=== PATIENT | female | born 1950 | race American Indian/Alaskan Native ===

== ENCOUNTER 2018-05-04 16:01 | Outpatient (CLI) | payer MEDICARE, OTHER | END 2018-05-04 16:02 | disposition home or self-care (01) | LOC: LABHHL 16:01 | PROVIDERS: ATTEND Surgery | DX: L72.3 Sebaceous cyst (principal) | CPT/HCPCS: 87075; 87116 ==

== ENCOUNTER 2018-07-16 07:10 | Day surgery (SDC) | payer MEDICARE, OTHER ==
[~2018-07-16 07:10] MED LIST: ANCEF/STERILE WATER 2 GM/20 ML 2 GM/20 ML SYRINGE IV NR; VANCOMYCIN 1,250 MG in NACL 0.9% 250ML 250 ML IV SCH; VANCOMYCIN/NS 1 GM/250 ML 1 GM/250 ML BAG IV NR
[2018-07-16] MEDS ORDERED: DILAUDID IV PRN (08:04)
[2018-07-16] MEDS ORDERED: SUBLIMAZE IV NR (08:04)
--- NOTE | 2018-07-16 08:07 | Anesthesia Day of Surgery ---
Anesthesia Day of Surgery - Day of Surgery Patient Examined: Yes Patient H&P Reviewed: Yes Patient is NPO: Yes Beta Blockers: Yes
--- NOTE | 2018-07-16 08:07 | Anesthesia Consultation ---
Anesthesia Consult and Med Hx Date of service: 07/16/18 - Airway Anesthetic Teeth Evaluation: Good ROM Head & Neck: Adequate Mental/Hyoid Distance: Adequate Mallampati Class: Class II Intubation Access Assessment: Probably Good - Pulmonary Exam CTA: Yes - Cardiac Exam Cardiac Exam: RRR - Pre-Operative Health Status ASA Pre-Surgery Classification: ASA3 Proposed Anesthetic Plan: General Nerve Block: PEC - Pulmonary Hx Smoking: No Hx Asthma: No Hx Respiratory Symptoms: No Hx Sleep Apnea: Yes (noncompliant with CPAP) - Cardiovascular System Hx Hypertension: Yes (took metoprolol, losartan, amlodipine last night) Hx Heart Attack/AMI: No Hx Percutaneous Transluminal Coronary Angioplasty (PTCA): No - Central Nervous System Hx Seizures: No CVA: No Hx Psychiatric Problems: Yes - Gastrointestinal Hx Gastroesophageal Reflux Disease: Yes (took protonix this morning; well controlled) - Endocrine Hx Renal Disease: No Hx Liver Disease: No Hx Non-Insulin Dependent Diabetes: Yes (took metoprolol last night) Hx Thyroid Disease: No - Other Systems Hx Obesity: Yes - Additional Comments Anesthesia Medical History Comments: No hx anesthetic complications. Consented for preop PEC block per surgeon request for post op analgesia.
[2018-07-16] MEDS ORDERED: MARCAINE 0.25% INFILTRATI ONE (08:17)
[2018-07-16] MEDS ORDERED: VERSED IV NR (09:00)
[2018-07-16] MEDS ORDERED: LACTATED RINGERS 1,000 ML IV SCH (09:00)
[2018-07-16] MEDS ORDERED: DIPRIVAN 10 MG/ML IV ONE (09:17)
[2018-07-16] MEDS ORDERED: SUBLIMAZE ONE (09:18)
[2018-07-16] MEDS ORDERED: NACL 0.9% IR ONE (10:03)
[2018-07-16] MEDS ORDERED: XYLOCAINE CARDIAC IV ONE (11:13)
[2018-07-16] MEDS ORDERED: ZOFRAN ONE (11:16)
--- NOTE | 2018-07-16 11:23 | Short Stay Summary ---
Short Stay Documentation Date of service: 07/16/18 - History H&P: obtained from office - Allergies and Medications Current Medications: Allergies ampicillin Allergy (Verified 07/13/18 09:48) Gums swell, Mouth sores ibuprofen Allergy (Verified 07/13/18 09:48) Lips and Eyes Swell Penicillins Allergy (Verified 07/13/18 09:48) Gums swell, Mouth sores shellfish derived Allergy (Verified 07/13/18 09:48) Welps Sulfa (Sulfonamide Antibiotics) Allergy (Verified 07/13/18 09:48) Itching codeine Adverse Reaction (Verified 07/13/18 09:48) Headache Home Medications Medication Instructions Recorded Confirmed Last Taken Type Acetaminophen [Tylenol Extra 500 mg PO Q4H PRN 07/13/18 07/16/18 07/15/18 09:00 History Strength] Cetirizine HCl [Allergy Relief] 10 mg PO DAILY 07/13/18 07/16/18 07/15/18 18:00 History Chlorthalidone 25 mg PO DAILY 07/13/18 07/16/18 07/16/18 04:00 History Losartan Potassium 100 mg PO QHS 07/13/18 07/16/18 07/15/18 21:00 History Metformin HCl 500 mg PO BID 07/13/18 07/16/18 07/15/18 21:00 History Metoprolol Xl [Metoprolol 50 mg PO QDAY 07/13/18 07/16/18 07/15/18 21:00 History SUCCINATE ER TAB] Pantoprazole [Protonix] 40 mg PO QDAY 07/13/18 07/16/18 07/16/18 04:00 History Potassium Chloride [Klor-Con 10] 10 meq PO DAILY 07/13/18 07/16/18 07/15/18 20:00 History Pravastatin [Pravachol] 20 mg PO DAILY 07/13/18 07/16/18 07/15/18 21:00 History amLODIPine [Norvasc] 5 mg PO DAILY 07/13/18 07/16/18 07/15/18 21:00 History traMADol [Ultram] 50 mg PO Q8HR PRN 07/13/18 07/16/18 07/15/18 09:00 History traZODone [Desyrel] 50 mg PO QHS 07/13/18 07/16/18 07/15/18 21:00 History Clindamycin [Clindamycin CAP] 300 mg PO Q8H 5 Days #15 cap 07/16/18 Unknown Rx traMADol [Ultram 50 MG tab] 50 mg PO Q6HR PRN #30 tablet 07/16/18 Unknown Rx Active Medications Fentanyl (Sublimaze) 100 mcg IV ONCE NR Stop: 07/16/18 16:00 Last Admin: 07/16/18 08:36 Dose: 100 mcg Documented by: Hydromorphone HCl (Dilaudid) 0.5 mg IV Q10MIN PRN PRN Reason: Pain , Severe (7-10) Stop: 07/16/18 20:00 Vancomycin HCl 1,250 mg/ (Sodium Chloride) 275 mls @ 166.667 mls/hr IV PREOP TERRI Last Admin: 07/16/18 08:41 Dose: 166.667 mls/hr Documented by: Lactated Ringer's (Lactated Ringers) 1,000 mls @ 100 mls/hr IV DIRECT TERRI Last Admin: 07/16/18 08:10 Dose: 100 mls/hr Documented by: Midazolam HCl (Versed) 2 mg IV PREOP NR Stop: 07/16/18 23:59 Last Admin: 07/16/18 08:36 Dose: 2 mg Documented by: - Brief post op/procedure progress note Date of procedure: 07/16/18 Pre-op diagnosis: Right axillary accessory breast tissue and right breast sebaceous cyst Post-op diagnosis: same Procedure: Right axillary accessory breast tissue partial mastectomy and right breast sebaceous cyst excisional biopsy Anesthesia: GETA Findings: Right axillary accessory breast tissue excision and right breast sebaceous cyst excisional biopsy at 2:00 position 12-14 cm from the nipple Surgeon: KITTY MORRIS Estimated blood loss: minimal Pathology: list (right breast sebaceous cyst and right axillary accessory breast tissue) Specimen disposition: to lab Condition: stable - Disposition Condition at discharge: Good Disposition: DC-01 TO HOME OR SELFCARE Short Stay Discharge Plan Activity: other (no heavy lifting) Diet: regular Wound: keep clean and dry (remove axillary dressing on monday; may shower in 48 hours; no baths, pools or lakes) Follow up with: ARPITA CHAND MD [Primary Care Provider] - 7 Days KITTY MORRIS MD [Staff Physician] - 7 Days Prescriptions: Clindamycin [Clindamycin CAP] 300 mg PO Q8H 5 Days #15 cap traMADol [Ultram 50 MG tab] 50 mg PO Q6HR PRN #30 tablet PRN Reason: Pain
--- NOTE | 2018-07-16 11:30 | Operative Report ---
Operative Report Operative Report: Date of Service: July 16, 2018 Preoperative diagnosis: Right breast upper inner quadrant sebaceous cyst and right axillary accessory breast tissue Postoperative diagnosis: Same Procedure:Right breast sebaceous cyst excisional biopsy and right axillary accessory breast tissue partial mastectomy Surgeon: Lala Burk M.D. Findings: Known right breast sebaceous cyst at 2:00 position 12-14 cm from the nipple and right axillary accessory breast tissue Complications: None Drains: None Estimated blood loss: Minimal Disposition: PACU in good condition Indication for operative procedure: This is a 67-year-old lady with known right breast sebaceous cyst at the 2:00 position with prior infection and right axillary accessory breast tissue. Recommendation was to proceed with excisional biopsy given significant history of infection of right breast sebaceous cyst and patient wanted excision of accessory breast tissue given symptomatic pain. Patient wished to proceed with the above procedure. The patient was procedure in detail: The patient was taken to the operating room and was laid supine. General anesthesia was administered. Right pectoral block placed in preoperative holding. The right breast sebaceous cyst location was noted as well as the accessory breast tissue. The right breast and axilla was prepped and draped in the normal sterile operative fashion. Timeout was performed. Attention was taken towards the axillary accessorty breast tissue. A typical mastecomy marking was made. A breast incision was made with a 15 blade knife encompassing the axillary accessory breast tissue with dissection taken down to the subcutaneous tissues. The accessory breast was excised. The breast cavity was irrigated and suctioned. Hemostasis was obtained. The deep tissues were approximated and closed using interrupted 3-0 Vicryl and skin brought together and closed using a running 4-0 Monocryl followed by dermabond. Attention was then taken towards the right breast sebaceous cyst at the 2:00 position 12-14 cm from the nipple. A breast incision was made with a 15 blade knife encompassing the sebaceous cyst with dissection taken down to the subcutaneous tissues. The cyst was not encountered and was excised. The breast cavity was irrigated and suctioned. Hemostasis was obtained. The deep tissues were approximated and closed using interrupted 3-0 Vicryl and skin brought together and closed using a running 4-0 Monocryl followed by dermabond. She tolerated surgery very well, was awaken from anesthesia and was transported to PACU in good condition.
[2018-07-16] MEDS ORDERED: PERCOCET 5/325 PO ONE (11:39)
[2018-07-16 12:31] VITALS: BP 154/72
--- NOTE | 2018-07-16 13:48 | Post Anesthesia Evaluation ---
- Post Anesthesia Evaluation Patient Participated: Yes Airway Patent: Yes Stable Respiratory Function: Yes Nausea/Vomiting: No Temp > 96.8F: Yes Pain Manageable: Yes Adequeate Hydration: Yes Anesthesia Complications: No Block Receding Appropriately: No (block for postop analgesia)
== END 2018-07-16 07:11 | disposition home or self-care (01) ==
LOC: OR 07:10
PROVIDERS: ATTEND Surgery
DX: N60.11 Diffuse cystic mastopathy of right breast (principal); L72.3 Sebaceous cyst; E78.00 Pure hypercholesterolemia, unspecified; E11.40 Type 2 diabetes mellitus with diabetic neuropathy, unspecified; I10 Essential (primary) hypertension; G47.30 Sleep apnea, unspecified; K21.9 Gastro-esophageal reflux disease without esophagitis; F32.9 Major depressive disorder, single episode, unspecified; M19.90 Unspecified osteoarthritis, unspecified site; E66.9 Obesity, unspecified; Z68.32 Body mass index [BMI] 32.0-32.9, adult; Z88.6 Allergy status to analgesic agent; Z88.5 Allergy status to narcotic agent; Z88.2 Allergy status to sulfonamides; Z98.51 Tubal ligation status; Z87.442 Personal history of urinary calculi; Z98.890 Other specified postprocedural states; Z88.0 Allergy status to penicillin; Z91.013 Allergy to seafood; Z79.899 Other long term (current) drug therapy; Z79.01 Long term (current) use of anticoagulants; Z79.84 Long term (current) use of oral hypoglycemic drugs; Z88.8 Allergy status to other drugs, medicaments and biological substances
CPT/HCPCS: 11406; 19120; 82962; 88305; 88307; J1170; J2001; J2250; J2405; J2704; J3010; J3370; J7050; J7120

== ENCOUNTER 2020-03-31 13:08 | Outpatient (CLI) | payer MEDICARE, OTHER ==
--- NOTE | 2020-03-31 16:48 | Mammography Report ---
DIGITAL SCREENING MAMMOGRAM WITH CAD, 03/31/2020 CLINICAL INFORMATION / INDICATION: Routine screening mammography. SCREENING MAMMO TECHNIQUE: Digital bilateral 2D mammography was obtained in the craniocaudal and mediolateral obliqu e projections. This examination was interpreted with the benefit of Computer-Aided Detection analysis . COMPARISON: 06/27/2015 and 03/28/2019. FINDINGS: Breast Density: There are scattered areas of fibroglandular density. Right breast scarring inferomedially is again noted. A benign-appearing nodule in the right upper out er quadrant is stable. Grouped calcifications in the left breast in the middle depth near 1:00 and in the left breast near the 4:00 position in the middle depth are similar to the prior study but signif icantly increased since 2016. Calcifications inferiorly are in a linear distribution.. IMPRESSION: 2 areas of grouped calcifications in the left breast. Magnification views recommended for further characterization. Follow up recommendation: Special View: Mag BI-RADS Category 0: Incomplete. Needs additional imaging evaluation and/or prior mammograms for liane rison. A "normal" or negative report should not discourage follow up or biopsy of a clinically significant f inding. A written summary of these findings will be mailed to the patient. The patient will be entered into a mammography reporting system which will generate a reminder letter for the patient's next appointmen t at the appropriate interval. The [employer] recommends yearly mammograms starting at age 40 and continuing as l gerson as a woman is in good health. Breast MRI is recommended for women with an approximate 20-25% or greater lifetime risk of breast cancer, including women with a strong family history of breast or ova jinny cancer or who have been treated for Hodgkin's disease. Signer Name: Sonny Ayala MD Signed: 03/31/2020 4:44 PM Workstation Name: [id number]
== END 2020-03-31 13:09 | disposition home or self-care (01) ==
LOC: SPVWC 13:08
PROVIDERS: ATTEND Surgery
DX: Z12.31 Encounter for screening mammogram for malignant neoplasm of breast (principal)
CPT/HCPCS: 77067